=== PATIENT | female | born 1995 | race Two or more races ===

== ENCOUNTER 2021-01-10 06:02 | Day surgery (SDC) | payer OTHER ==
[2021-01-10] VITALS (10 sets, daily range): BP systolic 113–139; BP diastolic 57–87
[~2021-01-10] VITALS: Ht 165.1 cm; Wt 90.7 kg
[~2021-01-10 06:02] MED LIST: ceFAZolin 1gm IVPB IVPB ONE; celeBREX 200mg Cap **SURGERY PATIENTS ONLY ORAL ONE; nka; oxyCONTIN 20mg tab ORAL ONE
[2021-01-10] MEDS ORDERED: oxyCONTIN 20mg tab ORAL ONE (09:46)
[2021-01-10] MEDS ORDERED: celeBREX 200mg Cap **SURGERY PATIENTS ONLY ORAL ONE (09:46)
[2021-01-10] MEDS ORDERED: fentaNYL 100 mcg/2 mL IV ONE (10:07)
[2021-01-10] MEDS ORDERED: Midazolam 2mg/2ml Inj ONE (10:07)
[2021-01-10] MEDS ORDERED: Lidocaine 1% MPF 10mg/ml 5ml ONE (10:09)
[2021-01-10] MEDS ORDERED: Ropivacaine 5mg/ml Vial 30ml INJ ONE (10:13)
[2021-01-10] MEDS ORDERED: Tylenol #3 tab (300mg/30mg) ORAL PRN (10:15)
[2021-01-10] MEDS ORDERED: HYDROcodone/Acetamin 5/325 tab ORAL PRN (10:15)
[2021-01-10] MEDS ORDERED: HYDROmorphone 1mg/ml Carpuject SUBQ PRN (10:15)
--- NOTE | 2021-01-10 10:15 | Pre-Procedure Note/Attestation ---
Pre-Procedure Note/Attestation Complete Prior to Procedure Planned Procedure: right Procedure Narrative: ankle arthroscopy, possible synovectomy, chondroplasty with autologous bone grafting fibula nonuniun, stem cell aspiration Indications for Procedure Pre-Operative Diagnosis: right ankle pain with fibula nonunioun Attestation I attest that I discussed the nature of the procedure; its benefits; risks and complications; and alternatives (and the risks and benefits of such alternatives), prior to the procedure, with the patient (or the patient's legal it sales representative). I attest that, if there was a reasonable possibility of needing a blood transfusion, the patient (or the patient's legal it sales representative) was given the [place] [facility] standardized written summary, pursuant to the Pierce Dion Blood Safety Act ([place] Health and Safety Code # 1645, as amended). I attest that I re-evaluated the patient just prior to the surgery and that there has been no change in the patient's H&P, except as documented below: Mino Bansal MD Jan 10, 2021 10:15
--- NOTE | 2021-01-10 10:16 | Operative Note - PDOC ---
Operative Note Operative Note Pre-op Diagnosis: right ankle pain with fibula nonunioun Procedure: see op report Post-op Diagnosis: same as pre-op plus Operative Findings: consistent w/pre-op dx studies Anesthesia: regional Specimen: none Complications: none Condition: stable Estimated Blood Loss: none Implant(s) used?: Yes Mino Bansal MD Jan 10, 2021 10:16
[2021-01-10] MEDS ORDERED: Ketorolac 30mg Inj ONE ×2 (10:17→11:28)
[2021-01-10] MEDS ORDERED: Kenalog-40 1ml Vial ONE (10:17)
[2021-01-10] MEDS ORDERED: Bupivacaine 0.5% Inj 30 ml vial INJ ONE ×3 (10:18→11:24)
[2021-01-10] MEDS ORDERED: Duramorph PF 5mg/10ml amp ONE (10:18)
[2021-01-10] MEDS ORDERED: Sterile Water Irrig 1000ml IRRIG ONE (10:30)
[2021-01-10] MEDS ORDERED: LR 1000ml ONE (10:30)
[2021-01-10] MEDS ORDERED: EPINEPHrine 1mg/1ml Amp ONE ×2 (10:52→11:24)
--- NOTE | 2021-01-10 11:21 | Anethesia Preoperative Eval ---
Anesthesia Pre-op PMH/ROS General Date of Evaluation: Jan 10, 2021 Time of Evaluation: 10:20 Anesthesiologist: Agustin ASA Score: ASA 2 Mallampati Score Class I : Soft palate, uvula, fauces, pillars visible Class II: Soft palate, uvula, fauces visible Class III: Soft palate, base of uvula visible Class IV: Only hard plate visible Mallampati Classification: Class II Surgeon: Rolf Diagnosis: L ankle pain Surgical Procedure: `L ankle scope Anesthesia History: none Family History: no anesthesia problems Allergies: Coded Allergies: GLUTEN (Verified Allergy, Severe, 01/10/21) NAUSEA, FATIGUE, HIVES Medications: see eMAR Patient NPO?: Yes Past Medical History Cardiovascular: Denies: HTN, CAD, DC, valve dz, arrhythmia, other Pulmonary: Denies: asthma, COPD, ANNABEL, other Gastrointestinal/Genitourinary: Reports: GERD; Denies: CRI, ESRD, other Neurologic/Psychiatric: Reports: depression/anxiety, other - chronic pain; Denies: dementia, CVA, TIA Endocrine: Denies: DM, hypothyroidism, steroids, other HEENT: Denies: cataract (L), cataract (R), glaucoma, ORUTSARARMIUT (L), ORUTSARARMIUT (R), other Hematology/Immune: Denies: anemia, DVT, bleeding disorder, other Musculoskeletal/Integumentary: Denies: OA, RA, DJD, DDD, edema, other Other: other - overweight PMH Narrative: as above PSxH Narrative: L ankle Sx. Anesthesia Pre-op Phys. Exam Physician Exam Last Vital Signs Date Time Temp Pulse Resp B/P (MAP) Pulse Ox O2 Delivery O2 Flow Rate FiO2 01/10/21 06:37 97.6 62 18 113/57 97 Room Air Constitutional: NAD Neurologic: CN 2-12 intact Cardiovascular: RRR, no M/R/G Respiratory: CTA Gastrointestinal: S/NT/ND Airway Exam Mallampati Score: Class II MO: full Neck: flexible ROM: full Teeth: intact Dentures: no upper, no lower Anesthesia Pre-op A/P Labs see chart Urine Test Test 01/10/21 06:10 Urine HCG, Qualitative Negative (NEGATIVE) Studies Pre-op Studies: EKG - NSR Risk Assessment & Plan Assessment: ASA 2 Plan: GA with LMA popliteal fossa block for postop pain control Status Change Before Surgery: No Pre-Antibiotics Drug: Ancef 2gr Given Within 1 Hr of Incision: Yes Time Given: 11:10 Vamshi Velez MD Jan 10, 2021 11:21
[2021-01-10] MEDS ORDERED: Ketorolac 30mg Inj IV PRN (11:30)
[2021-01-10] MEDS ORDERED: DiphenhydrAMINE 50mg/ml Inj IVP PRN (11:30)
[2021-01-10] MEDS ORDERED: Meperidine 25mg/1ml Inj (FOR RIGORS ONLY) IV PRN (11:30)
[2021-01-10] MEDS ORDERED: Acetaminophen (Non formulary) 100 ML IV ONE (11:30)
[2021-01-10] MEDS ORDERED: LR 1000ml 1,000 ML IVLG SCH (11:30)
[2021-01-10] MEDS ORDERED: Metoclopramide 10mg/2ml Inj IVP PRN (11:30)
[2021-01-10] MEDS ORDERED: Midazolam 2mg/2ml Inj IVP PRN (11:30)
[2021-01-10] MEDS ORDERED: Morphine Sulfate 10mg/ml Inj ONE (11:39)
[2021-01-10] MEDS ORDERED: Sodium Chloride 10ml vial INJ ONE (11:39)
[2021-01-10] MEDS ORDERED: NS Irrig 3000ml IRRIG ONE (11:40)
--- NOTE | 2021-01-10 13:11 | Immediate Post-Op Evaluation ---
Immediate Post-Op Evalulation Immediate Post-Op Evalulation Procedure: L ankle arthroscopy, bone graft to nonunion Fx with stemcells Date of Evaluation: Jan 10, 2021 Time of Evaluation: 13:10 IV Fluids: 1200 Blood Products: none Estimated Blood Loss: 50 Urinary Output: NONE Blood Pressure Systolic: 126 Blood Pressure Diastolic: 78 Pulse Rate: 86 Respiratory Rate: 22 O2 Sat by Pulse Oximetry: 99 Temperature (Fahrenheit): 97.6 Pain Score (1-10): 2 Nausea: No Vomiting: No Complications none Patient Status: patent, none Hydration Status: adequate Vamshi Velez MD Jan 10, 2021 13:11
--- NOTE | 2021-01-10 13:34 | 48 Hour Post Anesthesia Eval ---
Post Anesthesia Evaluation Procedure: L ankle arthroscopy, bone graft to nonunion Fx with stemcells Date of Evaluation: Jan 10, 2021 Time of Evaluation: 13:33 Blood Pressure Systolic: 128 0: 76 Pulse Rate: 82 Respiratory Rate: 20 Temperature (Fahrenheit): 97.8 O2 Sat by Pulse Oximetry: 98 Airway: patent Nausea: No Vomiting: No Pain Intensity: 2 Hydration Status: adequate Cardiopulmonary Status: stable Mental Status/LOC: patient returned to baseline Follow-up Care/Observations: n/a Post-Anesthesia Complications: none Follow-up care needed: ready to discharge Vamshi Velez MD Jan 10, 2021 13:34
[2021-01-10] MEDS ORDERED: D5 1/2NS 1,000 ML IV SCH (17:00)
--- NOTE | 2021-01-10 19:05 | Diagnostic Imaging Report ---
INDICATION: Pain, intraoperative TECHNIQUE: Intraoperative imaging Fluoroscopy time: 8.7 seconds Total dose: 0.93070 mGym2 Total number of images: 3 COMPARISON: None FINDINGS: Intraoperative images obtained during left ankle arthroplasty IMPRESSION: Intraoperative images, as described
--- NOTE | 2021-01-10 20:44 | Operative Note - Dictated ---
DATE OF OPERATION: 01/10/2021 PREOPERATIVE DIAGNOSES: 1. Left ankle pain. 2. Left ankle fibular nonunion. POSTOPERATIVE DIAGNOSES: 1. Left ankle grade 2 chondral damage tibiotalar joint. 2. Hypertrophic synovial tissue/scar tissue, medial and lateral gutter. 3. Left ankle fibular nonunion. PROCEDURE: 1. Left ankle diagnostic arthroscopy, synovectomy. 2. Left ankle extensive intraarticular debridement. 3. Open treatment, left fibula nonunion with autologous bone graft with stem cell aspirate. 4. Open proximal tibia bone graft procurement, left hip iliac crest stem cell aspiration. SURGEON: Mino Bansal MD. ANESTHESIA: General. INDICATION FOR PROCEDURE: Patient is a pleasant female, who underwent revision ORIF with bone grafting and stem cell aspirate left fibular nonunion. She had continued evidence of a nonunion, had specific ankle pain as well mostly localized line in the medial gutter. She elected to go undergo a right ankle diagnostic arthroscopy, possible synovectomy, chondroplasty based on intraoperative findings as well as a revision with autologous bone grafting with stem cell aspiration. Risks, limitations, expectations, complications with procedure were discussed in detail including infection, nerve vessel damage, continued pain, continued inability of the bone to heal along with standard complications. All questions addressed. DESCRIPTION OF PROCEDURE: After informed consent was obtained, patient was brought to the operating room. Patient was placed under popliteal and general anesthesia. At this point, after a time-out was performed, Ancef was administered, the left iliac crest was prepped and draped. A trocar was then placed in the iliac crest and 60 mL of stem cell aspirate was aspirated using [employer] stem cell concentrate system. This was sent off the field to further concentrate the stem cells. A compression dressing was applied along the left hip. At this point, the tourniquet was applied on the left proximal thigh. Left leg was prepped and draped in a sterile manner for the ankle arthroscopy portion. The tibialis anterior tendon was identified. Once the ankle was placed in slight traction, 25-gauge needle was then placed just medial to the tibialis anterior tendon, triangulated by the medial viewing portal. Once this was obtained, the skin was incised blunt dissection into the subcutaneous tissue. The capsule was performed. Trocar introduced into the ankle joint. There was some chondral damage in the lateral tibiotalar joint involving the tibia as well as the talus. There was hypertrophic scar tissue in the lateral gutter. Using inside-out technique, a 25-gauge was then placed through the anterolateral portal. Once the trajectory was confirmed, the skin was incised blunt dissection through the subcutaneous tissue and capsule was performed. Shaver was then placed and debridement of the anterolateral tibiotalar joint extending to the lateral gutter was performed. Once that was done, the camera was positioned in the lateral to view medially. There was hypertrophic scar tissue extending into the medial gutter. There was also noted some chondral damage in the medial gutter along the medial malleolus extending to the tibial plafond. At this point, the camera was placed and debridement of the soft tissue in the lateral gutter was performed. Once that was done, a gentle chondroplasty of the areas of chondral damage in the tibiotalar joint was completed. At this point, the instruments were removed and the skin was closed using nylon sutures. At this point, attention turned towards the procurement for the autologous bone graft. The tibial tubercle was identified 1.5 cm along the anterior medial aspect of the tibia. Full-thickness subcutaneous flaps were created down to the periosteum. Once the periosteum was identified, blunt dissection was used to better visualize the periosteum without using any ArthroCare. At this point, a cortical window was created using 4 drill holes and osteotome. Once the cortical wound was opened up, procurement of the bone graft from the proximal tibia was performed. Once enough bone graft was procured, the cortical window was then placed back along with some bone wax to create a firm seal. The subcutaneous tissue was approximated with #1 Vicryl suture, 2-0 Vicryl suture, and 3-0 Monocryl sutures. At this point, attention turned towards the fibular nonunion. Using radiographs, the incision was marked out. There was significant widening of the scar. It was felt that excising the scar, may make it difficult to close given that this is her third surgery and the soft tissue was not as mobile as we would . Therefore, the anterior edge of the keloid was identified. The skin was incised. Blunt dissection down to the lateral fibula was performed. Using x-ray, the 18-gauge needle was then placed along what appeared to be the the fibrous nonunion. The x-ray confirmed that the needle was in the nonunion site. Therefore at this point, the fibrous tissue was debrided down this bleeding bone. Using a drill through one of the lateral holes, holes were made from lateral medial and superior straight medial and inferior portion. Once this was done, the retrograde drilling of the proximal and distal fragments was performed using a drill. Finally, curved osteotomy used to tether the proximal and distal fracture fragments. At this point, there was significant bone bleeding and seemed like at this point further techniques were not being necessary. At this point, the bone graft was placed in the fibrous nonunion site impacted with a bone tamp. An 18-gauge needle was then placed into this area. At this point, attention turned towards the closure, which was done using #1 Vicryl suture, 2-0 Vicryl suture, 3-0 Monocryl sutures. Dermabond was then placed and once it was adequately sealed, stem cell aspirate was then injected along the nonunion site. Once that was done, a posterior splint was applied. Patient was awoken and taken to recovery room with stable vital signs. ESTIMATED BLOOD LOSS: 150 mL including 60 mL of stem cell aspirate. IMPLANTS: None. COMPLICATIONS: None. Mino Bansal M.D. DR: CIELO JOB#: [id number] CC:
== END 2021-01-10 15:05 | disposition home or self-care (01) ==
LOC: SUR 06:02
DX: M67.272 Synovial hypertrophy, not elsewhere classified, left ankle and foot (principal); S82.492K Other fracture of shaft of left fibula, subsequent encounter for closed fracture with nonunion; X58.XXXD Exposure to other specified factors, subsequent encounter; E66.3 Overweight; Z68.33 Body mass index [BMI] 33.0-33.9, adult; F32.9 Major depressive disorder, single episode, unspecified; F41.9 Anxiety disorder, unspecified; K21.9 Gastro-esophageal reflux disease without esophagitis
CPT/HCPCS: 20900; 27899; 29895; 29898; 73600; 76000; 81025; 94003; J0131; J0171; J0690; J1885; J2250; J2270; J2405; J2704; J2795; J3010; J3490; J7120; U0002; U0004; 94150; J2180